=== PATIENT | male | born 1955 | race Caucasian/White ===

== ENCOUNTER → 2024-07-07 14:34 | Outpatient (REF) | payer BC, SELFPAY | LOC: RAD 14:34 | PROVIDERS: ATTENDING PHYSICIAN Internal Medicine | DX: R06.09 Other forms of dyspnea (principal) | CPT/HCPCS: 71046 ==

== ENCOUNTER 2024-07-10 22:33 | Inpatient (IN) | payer BC, MEDICARE, SELFPAY ==
[2024-07-10] VITALS (9 sets, daily range): BP systolic 141–177; BP diastolic 80–88; BMI 33.6; BMI 32.9
[2024-07-10 18:17] LABS: % Basophils 0.6 % (0-2); % Eosinophils 5.9 % (0-6); % Immature Granulocytes 0.3 % (0-0.5); % Monocytes 11.9 % (1.7-9.3); % Neutrophils 52.3 % (42.2-75.2); Absolute Eosinophils 0.4 10^3/uL (0-0.7); Absolute Monocytes 0.8 10^3/uL (0.1-0.6); Absolute Neutrophils 3.6 10^3/uL (1.4-6.5); Hematocrit 21.4 % (39.0-52.0); Hemoglobin 7.2 g/dL (13.0-18.0); Mean Corp Hgb Conc. 33.6 g/dL (33.0-37.0); Mean Corpuscular Volume 77.3 fL (80.0-94.0); Nucleated Red Blood Cells % 0 % (-); Platelet Count 288 10^3/uL (130-400); Red Blood Cell Count 2.77 10^6/uL (4.70-6.10); Red Cell Dist. Width 15.4 % (11.5-14.5)
[2024-07-10 18:43] LABS: ALT (SGPT) 20 U/L (0-50); AST (SGOT) 26 U/L (17-59); Albumin 4.4 g/dl (3.5-5.0); Alkaline Phosphatase 83 U/L (38-126); Blood Urea Nitrogen 18 mg/dl (9-20); Calcium 9.4 mg/dl (8.4-10.2); Carbon Dioxide 23 mmol/L (22-30); Glucose 100 mg/dl (70-99); Total Bilirubin 0.4 mg/dl (0.2-1.3); Total Protein 6.4 g/dl (6.3-8.2); eGFR > 60.00
[2024-07-10 18:51] LABS: Chloride 101 mmol/L (98-107); Sodium 137 mmol/L (135-145)
--- NOTE | 2024-07-10 21:12 | ED.GENMED ---
History of Present Illness
General
Chief Complaint: Abnormal Lab Value
Source: patient
Exam Limitations: none
Time Seen by Provider: 07/10/24 20:45
History of Present Illness
History of Present Illness:
See MDM
Past History
Past History
ED Past Medical History: HTN and Hypercholesterolemia
ED Past Surgical History: None
Social History
Tobacco: Non-smoker
Alcohol: Occasional
Phy Exam
Physical Exam
Physical Exam:
See MDM
Course
Orders/Labs/Results
Orders:
Orders
07/10/24 18:10
Type+Screen Urgent
Complete Blood Count/With Diff Urgent
Comprehensive Metabolic Panel Urgent
Iron Urgent
Comment: ADD ON
Total Iron Binding Urgent
Comment: ADD ON
07/10/24 20:02
ABO2 Urgent
[employer] Wristband Number:
Associate notified that ABO2 has been ordered: [id number]
Date: 07/10/24
Time: 18:16
Environment Coordinator ID: [id number]
07/10/24 20:56
Add On- LAB Urgent
Tests Added?: TIBC, Iron level
07/10/24 21:11
Blood Bank Products [* Blood Bank Products] Urgent
's Orders: Antonio You DO
Blood Bank Products: *Packed RBC Leuko(PRBC's)
Quantity: 2
Transfuse Today: Yes
Reason: Anemia
07/10/24 21:12
Electrocardiogram (*1) Urgent
Reason for Study: Shortness of Breath
EKG- Treatment ONCE
Abnormal Lab Results
07/10/24
18:10
RBC 2.77 L 10^6/uL
(4.70-6.10)
Hgb 7.2 L g/dL
(13.0-18.0)
Hct 21.4 L %
(39.0-52.0)
MCV 77.3 L fL
(80.0-94.0)
MCH 26.0 L pg
(27.0-31.0)
RDW 15.4 H %
(11.5-14.5)
Absolute Monos (auto) 0.8 H 10^3/uL
(0.1-0.6)
Monocytes % 11.9 H %
(1.7-9.3)
Glucose 100 H mg/dl
(70-99)
Iron 29 L ug/dl
(49-181)
Crossmatch IS Only See Detail
07/10/24 18:10
07/10/24 18:10
Vital Signs
Initial and Last Documented VS:
Initial Vital Signs
Temp Pulse Resp BP Pulse Ox
98.3 F 77 18 160/86 96
07/10/24 18:03 07/10/24 18:03 07/10/24 18:03 07/10/24 18:03 07/10/24 18:03
Last Documented Vital Signs
Temp Pulse Resp BP Pulse Ox
98.3 F 67 17 177/88 98
07/10/24 18:03 07/10/24 21:04 07/10/24 21:04 07/10/24 21:00 07/10/24 21:04
MDM/Problems Addressed
Differential Diagnosis Includes:
HPI and MDM Narrative:
69-year-old male presenting with exertional dyspnea over the past several months. Patient initially thought this could be related to a recent trip that he where he was walking more than usual. When he returned, he still noticed that he was short
of breath walking up the steps. He eventually follow-up with his primary care this past week where he had a D-dimer which was normal, chest x-ray was normal and blood work showing anemia. Patient denies history of anemia. He states he has noted
intermittent dark stools in the past but nothing recently. He was sent in for further evaluation
Patient is on a baby aspirin but denies taking blood thinners
Blood work confirms anemia. MCV is 77 but patient states he eats red meat 3 times a week
Physical exam
General: Well appearing and non-toxic
HEENT: protecting airway
Neck: appears supple
CV: No evidence of cyanosis
Resp: No accessory muscle use
Abd: Non-distended
rectal exam: Brown stool guaiac negative
Extremities: No deformities
Neuro: alert
Psych: Normal affect
Skin: Intact
Problems Addressed including Acute and Chronic Conditions affecting care:
1. Symptomatic anemia
Acuity: acute
Prognosis: stable
Details: Possibly in the setting of iron deficiency and possible upper GI bleed. Patient consented for 2 units of packed red blood cells and will admit for further evaluation
Updates
Differential Diagnosis (but not limited to): Symptomatic anemia, upper GI bleeding, iron deficiency
Testing considered: Folic acid and thiamine levels
Drug therapy (if applicable): OTC meds, please see d/c instruction regarding Rx drugs
Amount and/or Complexity of Data Reviewed
Clinical info obtained from: Patient
External data reviewed: N/A
Labs I independently reviewed (but not limited to): Hemoglobin 7.2, MCV 77, white blood cell count and platelets normal
Radiology: N/A
Pulse Ox: not hypoxic
EKG independently reviewed: sinus rhythm, normal axis, no STEMI
Building Maintenance Supervisor: Sinus rhythm
Critical Care: The high probability of a clinically significant, sudden or life threatening deterioration of the cardiovascular system(s) required my full and direct attention, intervention and personal management. The aggregate critical care time
was 33 minutes. This time is in addition to time spent performing reported procedures but includes the following:
[x] Data Review and interpretation
[x] Patient assessment and monitoring of vital signs
[x] Documentation
[x] Medication orders and management
Risk of Complication:
Social Determinants of health: Good social support
Discussed with other providers: hospitalist
Escalation of Care includes Admit/Obs: Given the symptomatic anemia which is new, will admit for further evaluation
Occasional wrong word or 'sound a like' substitutions may have occurred due to the inherent limitations of voice recognition software. Read the chart carefully and recognize, using context, where substitutions have occurred.
*Critical Care Note
Total Time (30-74mins, 75-104mins- exclusive of procedures): 33 min
ED Attending Note
-
Portions of this chart may have been created with voice recognition software.� Occasional wrong word or��sound alike� substitutions may have occurred due to the inherent limitations of voice recognition software.
Discharge Plan
Departure
Patient Disposition: Admit
Date of Disposition: 07/10/24
Time of Disposition: 21:19
Admit to: Med/Surg
Presentation/result/management discussed w/ accepting MD/DO: Hospitalist
Discharge Problem:
Symptomatic anemia
Referrals:
Alfonso Davies MD [Family Provider] -
Interventions
Interventions:
*Risk Screen - Suicide Last Done: 07/10/24 18:03
*General Assessment Last Done: 07/10/24 18:03
*Neglect/Abuse Screening Last Done: 07/10/24 18:03
Discharge Date and Time
Print Language: HUNGARIAN
[2024-07-10 21:28] LABS: Iron 29 ug/dl (49-181)
[2024-07-10 21:38] LABS: Percent Saturation 5 % (20-50); Total Iron Binding Capacity 495 ug/dl (261-462)
--- NOTE | 2024-07-10 21:47 | HPS.HSE ---
Addendum entered and electronically signed by Vania Clark MD 07/10/24 23:39:
Systolic murmur on examination secondary to known aortic stenosis.
Original Note:
Family Physician
-
Family Physician: Alfonso Davies
Chief Complaint
-
anemia
History of Present Illness
69-year-old male past medical history of CAD status post CABG, hypertension, hypercholesteremia presenting with shortness of breath with exertion for months. He has also been having dizziness and occasional palpitations and chest pressure with
exertion. He was also recently having low blood pressure his primary care physician reduced the doses of his blood pressure medications by half. He had outpatient labs which showed low hemoglobin of 7.2. No prior history of anemia. He is
complained of dark stools in the past but no dark stools recently.
He had screening colonoscopy last year which was unremarkable.
He drinks up to a few drinks of alcohol occasionally. He denies smoking.
No family history of colon/GI problems.
Medical History
Past Medical History
Past Medical History: Reports Other (CAD status post CABG, hypertension, hypercholesteremia)
Past Surgical History: Reports None
Social History
Tobacco: Non-smoker
Alcohol: Occasional
Drug: None
Family History
Family History: Not pertinent
Allergies / Home Medications
Allergies reflects when Allergies were last updated in [facility].
Home Medications with original date entered in [facility]
Allergy/Medication List:
Allergies
Allergy/AdvReac Type Severity Reaction Status Date / Time
codeine Allergy Unknown Verified 07/10/24 18:03
Home Medications
amlodipine 5 mg tablet 5 mg PO HS 07/10/24
aspirin 81 mg tablet,delayed release 81 mg PO DAILY 07/10/24
atenolol 50 mg tablet 25 mg PO DAILY 07/10/24
cetirizine 10 mg tablet 10 mg PO DAILY 07/10/24
cholecalciferol (vitamin D3) 50 mcg (2,000 unit) tablet 50 mcg PO DAILY 07/10/24
coenzyme Q10 100 mg capsule (Co Q-10) 100 mg PO DAILY 07/10/24
evolocumab 140 mg/mL subcutaneous pen injector (Repatha SureClick) 140 mg SC Q2W 07/10/24
losartan 100 mg tablet 50 mg PO DAILY 07/10/24
milk thistle 150 mg capsule 375 mg PO DAILY 07/10/24
rosuvastatin 10 mg tablet 10 mg PO DAILY 07/10/24
therapeutic multivitamin 1 tab PO DAILY 07/10/24
turmeric root extract 500 mg capsule 2,250 mg PO DAILY 07/10/24
vitamin A-vitamin C-vit E-min tablet 1 tab PO DAILY 07/10/24
vitamin K2 100 mcg capsule 200 mcg PO DAILY 07/10/24
Review of Systems
-
History Source: Patient
A 12 point ROS was completed and negative except as noted: Yes
Constitutional: Reports No Symptoms
EENT: Reports No Symptoms
Respiratory: Reports No Symptoms
Cardiac: Reports No Symptoms
Abdomen/GI: Reports No Symptoms
: Reports No Symptoms
Musculoskeletal: Reports No Symptoms
Skin: Reports No Symptoms
Neurological: Reports No Symptoms
Endocrine: Reports No Symptoms
Hematologic/Lymphatic: Reports No Symptoms
Psych: Reports No Symptoms
Physical Exam
Vital Signs
Vital Signs
Temp Pulse Resp BP Pulse Ox
98.3 F 67 17 177/88 98
07/10/24 18:03 07/10/24 21:04 07/10/24 21:04 07/10/24 21:00 07/10/24 21:04
Physical Exam
General: Well Developed, Well Nourished and No Apparent Distress
HEENT: NormoCephalic, Moist mucous membranes and Atraumatic
Respiratory: Clear
Cardiac: S1/S2 and Regular Rhythm; No Murmur or Rub
GI: Soft, Non Tender, Non Distended and Normal Bowel Sounds; No Organomegaly
Rectal: Deferred by Provider
Musculoskeletal: No Clubbing, No Cyanosis and No Edema
Skin: No Rash
Neuro: Nonfocal/grossly intact
Laboratory Results
-
07/10/24 18:10
07/10/24 18:10
Laboratory Results
Total Bilirubin 0.4 mg/dl (0.2-1.3) 07/10/24 18:10
AST 26 U/L (17-59) 07/10/24 18:10
ALT 20 U/L (0-50) 07/10/24 18:10
Alkaline Phosphatase 83 U/L (38-126) 07/10/24 18:10
Data Reviewed
-
Lab Data: Labs Reviewed by me
Old Records: Reviewed
Impression/Plan
-
IMPRESSION:
PLAN:
# Acute microcytic anemia suspect chronic GI bleeding
-Hemoglobin 7.2
-Check iron studies, B12 and folate
-2 units of blood
-Protonix 40 IV twice daily
-Hold aspirin
-Clear liquid diet, n.p.o. past midnight
-GI consulted
CAD status post CABG
-Hold aspirin
Essential hypertension
-Blood pressure 170s currently
-Continue amlodipine, atenolol, losartan
Hypercholesterolemia
-continue statin
Full code
DVT prophylaxis�SCDs
N.p.o. pastmidnight
[2024-07-10] MEDS: NSS (PRESERVATIVE FREE) 10 ML IV (23:54)
[2024-07-10] MEDS: PROTONIX IV 40 MG IV (23:54)
[2024-07-10] MEDS: NORVASC 5 MG PO (23:54)
[2024-07-11] VITALS (12 sets, daily range): BP systolic 119–173; BP diastolic 68–95
--- NOTE | 2024-07-11 | PTCARENOTE ---
Received pt from ED, pt ambulated from stretcher to bed. No complaint of pain or dizzy. 2nd unit of blood transfusing. VSS
[2024-07-11 08:24] LABS: % Basophils 0.7 % (0-2); % Eosinophils 7.6 % (0-6); % Immature Granulocytes 0.5 % (0-0.5); % Lymphocytes 22.2 % (20.5-51.1); % Monocytes 13.5 % (1.7-9.3); % Neutrophils 55.5 % (42.2-75.2); Absolute Eosinophils 0.3 10^3/uL (0-0.7); Absolute Monocytes 0.6 10^3/uL (0.1-0.6); Absolute Neutrophils 2.4 10^3/uL (1.4-6.5); Hematocrit 25.4 % (39.0-52.0); Hemoglobin 8.5 g/dL (13.0-18.0); Mean Corp Hgb Conc. 33.5 g/dL (33.0-37.0); Mean Corpuscular Hgb 26.6 pg (27.0-31.0); Mean Corpuscular Volume 79.6 fL (80.0-94.0); Mean Platelet Volume 9.5 fL (7.4-10.4); Nucleated Red Blood Cells % 0 % (-); Platelet Count 235 10^3/uL (130-400); Red Blood Cell Count 3.19 10^6/uL (4.70-6.10); Red Cell Dist. Width 15.2 % (11.5-14.5); White Blood Cell Count 4.4 10^3/uL (4.8-10.8)
[2024-07-11] MEDS: THERAGRAN 1 TABLET PO (08:51)
[2024-07-11] MEDS: CRESTOR 10 MG PO (08:52)
[2024-07-11] MEDS: VITAMIN D3 (cholecalciferol) 50 MCG PO (08:52)
[2024-07-11] MEDS: NSS (PRESERVATIVE FREE) 10 ML IV ×2 (08:52→19:03)
[2024-07-11] MEDS: ZYRTEC 10 MG PO (08:52)
[2024-07-11] MEDS: TENORMIN 25 MG PO (08:52)
[2024-07-11] MEDS: COZAAR 50 MG PO (08:52)
[2024-07-11] MEDS: PROTONIX IV 40 MG IV ×2 (08:53→19:01)
[2024-07-11] MEDS: FLUSH (NSS) 1 FLUSH IV ×2 (08:53→19:03)
[2024-07-11 09:09] LABS: ALT (SGPT) 17 U/L (0-50); AST (SGOT) 23 U/L (17-59); Albumin 3.9 g/dl (3.5-5.0); Alkaline Phosphatase 71 U/L (38-126); Blood Urea Nitrogen 12 mg/dl (9-20); Calcium 8.9 mg/dl (8.4-10.2); Carbon Dioxide 27 mmol/L (22-30); Chloride 102 mmol/L (98-107); Estimated Creatinine Clearance 95 ml/min; Glucose 91 mg/dl (70-99); Sodium 138 mmol/L (135-145); Total Bilirubin 1.2 mg/dl (0.2-1.3); Total Protein 5.9 g/dl (6.3-8.2); eGFR > 60.00
[2024-07-11 09:53] LABS: Folate > 20.0 ng/ml (2.76-20); Vitamin B12 340 pg/ml (239-931)
--- NOTE | 2024-07-11 13:14 | CON.GI ---
Consultation
-
Date/Time Consultation Requested: 07/11/2024
Date/Time Consultation Performed: 07/11/2024
Performing Provider: Rafiq Ochoa
Reason for Consultation: anemia, reported melena
Medical History
Chief Complaint / HPI
Chief Complaint: anemia, reported melena
History of Present Illness:
Patient is a 6-year-old male with history of CAD s/p CABG, HTN, hypercholesterolemia who presents with dyspnea on exertion. He had outpatient lab which showed Hgb of 7.2. He reports she had melenic stool after he returned from his trip to [facility]
about 2 months ago. He had black stools for few days to up to about a week which stopped spontaneously. He has been having normal brown BM for past 2 months or so. He had colonoscopy in 2022 which was unremarkable.
Past Medical History
Past Medical History: CAD, HTN, Hypercholesterolemia and Other
Past Surgical History: Other
Social History
Tobacco: Non-Smoker
Alcohol: Occasional
Family History
Family History: Reviewed & Not Pertinent
Allergies / Home Medications
Allergy/AdvReac Type Severity Reaction Status Date / Time
codeine Allergy Unknown Verified 07/10/24 18:03
�Medication �Instructions �Recorded
amlodipine 5 mg tablet 5 mg PO HS 07/10/24
aspirin 81 mg tablet,delayed 81 mg PO DAILY 07/10/24
release
atenolol 50 mg tablet 25 mg PO DAILY 07/10/24
cetirizine 10 mg tablet 10 mg PO DAILY 07/10/24
cholecalciferol (vitamin D3) 50 50 mcg PO DAILY 07/10/24
mcg (2,000 unit) tablet
coenzyme Q10 100 mg capsule (Co 100 mg PO DAILY 07/10/24
Q-10)
evolocumab 140 mg/mL subcutaneous 140 mg SC Q2W 07/10/24
pen injector (Repatha SureClick)
losartan 100 mg tablet 50 mg PO DAILY 07/10/24
milk thistle 150 mg capsule 375 mg PO DAILY 07/10/24
rosuvastatin 10 mg tablet 10 mg PO DAILY 07/10/24
therapeutic multivitamin 1 tab PO DAILY 07/10/24
turmeric root extract 500 mg 2,250 mg PO DAILY 07/10/24
capsule
vitamin A-vitamin C-vit E-min 1 tab PO DAILY 07/10/24
tablet
vitamin K2 100 mcg capsule 200 mcg PO DAILY 07/10/24
Review of Systems
Vital Signs
Temp Pulse Resp BP Pulse Ox
97.6 F 57 20 137/80 98
07/11/24 11:00 07/11/24 11:00 07/11/24 11:00 07/11/24 11:00 07/11/24 11:00
Physical Exam
Exam
General: Well Developed and Well Nourished
HEENT: Normocephalic
Respiratory: Clear
Cardiac: S1/S2
GI: Soft, Non Tender and Non Distended
Results
WBC 4.4 10^3/uL (4.8-10.8) L 07/11/24 07:18
Hgb 8.5 g/dL (13.0-18.0) L 07/11/24 07:18
Hct 25.4 % (39.0-52.0) L 07/11/24 07:18
MCV 79.6 fL (80.0-94.0) L 07/11/24 07:18
Plt Count 235 10^3/uL (130-400) 07/11/24 07:18
Absolute Neuts (auto) 2.4 10^3/uL (1.4-6.5) 07/11/24 07:18
Sodium 138 mmol/L (135-145) 07/11/24 07:18
Potassium 4.0 mmol/L (3.5-5.1) 07/11/24 07:18
Chloride 102 mmol/L (98-107) 07/11/24 07:18
Carbon Dioxide 27 mmol/L (22-30) 07/11/24 07:18
BUN 12 mg/dl (9-20) 07/11/24 07:18
Creatinine 0.8 mg/dL (0.7-1.3) 07/11/24 07:18
Calcium 8.9 mg/dl (8.4-10.2) 07/11/24 07:18
Total Bilirubin 1.2 mg/dl (0.2-1.3) 07/11/24 07:18
AST 23 U/L (17-59) 07/11/24 07:18
ALT 17 U/L (0-50) 07/11/24 07:18
Alkaline Phosphatase 71 U/L (38-126) 07/11/24 07:18
Diagnostic Image Results:
Prior GI Procedures:
EGD:
Colonoscopy:
Assessment / Plan
-
6-year-old male with history of CAD s/p CABG, HTN, hypercholesterolemia who presents with symptomatic anemia. He reported remote history of melena.
Impression / Rec:
1. Symptomatic anemia, reported melena - Review of his outpatient records show he had normal Hgb on 12/2022. He also had diverticulosis but otherwise normal colonoscopy on 04/2023. He reported few days of melena after return from his trip to
[facility] about 2 months ago. He denies abdominal pain or NSAID use during the episode. He has been having regular brown BMs since for past 2 months. BRITTANY in ER showed brown stool and was Hemoccult negative. Abdo exam is normal. Never had EGD.
The etiology of his anemia is unclear at this point, certainly not from active hemorrhage. Will need Endo evaluation with EGD and possible capsule endoscopy, but I feel this can be arranged as OP. Can plan for inpatient endoscopy if his Hgb
decreases or has signs of active GI bleeding, otherwise plan for OP evaluation. Will schedule OP F/U. GI will sign off.
Total Time Spent with Patient (in minutes): 55
-
-
Thank you for consultation and allowing me to participate in the patient's care. Please call the resident surgeon GI physician during the after hours with any questions or concerns.
--- NOTE | 2024-07-11 13:17 | W.PN.HOSP.TC ---
Today's Communication/Plan
-
await GI input--started clears
follow HGB
Assessment / Plan
Assessment / Plan
pt is a 69 year old male
Acute microcytic anemia suspect chronic GI bleeding --Hemoglobin 7.2--appears iron deficient, although no ferritin checked--iron 29, TIBC 495, %sat 5--cont IV iron--s/p pRBC 2 units--PPI-apprec GI--clears--vit B12 low normal, may benefit from
supplements
CAD status post CABG--Hold aspirin
Essential hypertension--Blood pressure 170s currently--Continue amlodipine, atenolol, losartan
Hypercholesterolemia--continue statin
Full code
DVT prophylaxis�SCDs
Anticipated Discharge: 24 - 48 hours
Subjective/Interval History
-
Date of Service: July 11, 2024
pt without c/o--hoping to have solid food for dinner
Objective Data
-
Labs:
Laboratory Results
07/11/24
07:18
WBC 4.4 L
Hgb 8.5 L
Hct 25.4 L
Plt Count 235
Sodium 138
Potassium 4.0
Chloride 102
Carbon Dioxide 27
BUN 12
Creatinine 0.8
Glucose 91
Calcium 8.9
Total Bilirubin 1.2
AST 23
ALT 17
Alkaline Phosphatase 71
Vital Signs:
max temp for 24 hours
07/11/24
03:56
Temp 98 F
Vital Signs
Temp Pulse Resp BP Pulse Ox
97.6 F 57 20 137/80 98
07/11/24 11:00 07/11/24 11:00 07/11/24 11:00 07/11/24 11:00 07/11/24 11:00
I&O
07/10/24 07/11/24 07/12/24
06:59 06:59 06:59
Intake Total 500 / 500
Balance 500 / 500
Review of Systems
-
All other systems: Reviewed and negative
Physical Exam
-
General: Well Developed, Well Nourished and No Apparent Distress
HEENT: Normocephalic and Atraumatic
Respiratory: Clear to Auscultation; Negative Wheezes or Rhonchi
Cardiac: Regular Rhythm, S1/S2 and Murmur
GI: Soft, Nontender, Nondistended and Normal Bowel Sounds
Musculoskeletal: No Clubbing, No Cyanosis and No Edema
Neuro: Awake and Alert
[2024-07-11] MEDS: NORVASC 5 MG PO (21:52)
[2024-07-11] MEDS: MELATONIN 5 MG PO (22:59)
[2024-07-12 03:26] VITALS: BP 117/66
[2024-07-12 07:56] LABS: Hematocrit 27.2 % (39.0-52.0); Mean Corp Hgb Conc. 33.1 g/dL (33.0-37.0); Mean Corpuscular Hgb 25.9 pg (27.0-31.0); Mean Corpuscular Volume 78.4 fL (80.0-94.0); Mean Platelet Volume 9.5 fL (7.4-10.4); Platelet Count 257 10^3/uL (130-400); Red Blood Cell Count 3.47 10^6/uL (4.70-6.10); Red Cell Dist. Width 15.6 % (11.5-14.5); White Blood Cell Count 4.5 10^3/uL (4.8-10.8)
[2024-07-12 08:21] VITALS: BP 141/72
[2024-07-12] MEDS: ZYRTEC 10 MG PO (08:35)
[2024-07-12] MEDS: TENORMIN 25 MG PO (08:35)
[2024-07-12] MEDS: CRESTOR 10 MG PO (08:35)
[2024-07-12] MEDS: PROTONIX IV 40 MG IV (08:36)
[2024-07-12] MEDS: COZAAR 50 MG PO (08:36)
[2024-07-12] MEDS: NSS (PRESERVATIVE FREE) 10 ML IV (08:36)
[2024-07-12] MEDS: THERAGRAN 1 TABLET PO (08:36)
[2024-07-12] MEDS: VITAMIN D3 (cholecalciferol) 50 MCG PO (08:36)
[2024-07-12 08:39] LABS: Blood Urea Nitrogen 9 mg/dl (9-20); Calcium 9.2 mg/dl (8.4-10.2); Carbon Dioxide 27 mmol/L (22-30); Chloride 102 mmol/L (98-107); Estimated Creatinine Clearance 95 ml/min; Glucose 93 mg/dl (70-99); Magnesium 2.2 mg/dl (1.6-2.3); Potassium 4.5 mmol/L (3.5-5.1); Sodium 140 mmol/L (135-145); eGFR > 60.00
--- NOTE | 2024-07-12 09:17 | W.PN.HOSP.TC ---
Today's Communication/Plan
-
d/c
Assessment / Plan
Assessment / Plan
pt is a 69 year old male
Acute microcytic anemia suspect chronic GI bleeding --Hemoglobin 9.0 after 2 units pRBC --appears iron deficient, although no ferritin checked--iron 29, TIBC 495, %sat 5--cont iron--PPI-apprec GI---vit B12 low normal, may benefit from supplements
CAD status post CABG--Hold aspirin
Essential hypertension--Blood pressure 170s currently--Continue amlodipine, atenolol, losartan
Hypercholesterolemia--continue statin
Full code
DVT prophylaxis�SCDs
OK for d/c
Anticipated Discharge: Today
Subjective/Interval History
-
Date of Service: July 12, 2024
pt without c/o
Objective Data
-
Labs:
Laboratory Results
07/12/24
07:11
WBC 4.5 L
Hgb 9.0 L
Hct 27.2 L
Plt Count 257
Sodium 140
Potassium 4.5
Chloride 102
Carbon Dioxide 27
BUN 9
Creatinine 0.8
Glucose 93
Calcium 9.2
Vital Signs:
max temp for 24 hours
07/11/24
15:27
Temp 98.5 F
Vital Signs
Temp Pulse Resp BP Pulse Ox
97.7 F 58 18 141/72 95
07/12/24 08:21 07/12/24 08:35 07/12/24 08:21 07/12/24 08:35 07/12/24 08:21
I&O
07/11/24 07/12/24 07/13/24
06:59 06:59 06:59
Intake Total 500 / 500 720 / 720
Balance 500 / 500 720 / 720
Review of Systems
-
All other systems: Reviewed and negative
Physical Exam
-
General: Well Developed, Well Nourished and No Apparent Distress
HEENT: Normocephalic
Respiratory: Clear to Auscultation; Negative Wheezes or Rhonchi
Cardiac: Regular Rhythm, S1/S2 and Murmur
GI: Soft, Nontender, Nondistended and Normal Bowel Sounds
Musculoskeletal: No Clubbing, No Cyanosis and No Edema
Neuro: Awake and Alert
Psych: Calm
--- NOTE | 2024-07-12 11:15 | W.DCSUMMARY ---
Discharge Summary
Discharge Data
Date of Admission: 07/10/24
Date of Discharge: 07/12/24
-
Pending Results: No
Hospital Course
Primary care physician : Alfonso Davies
Principal Discharge diagnosis : Acute blood loss anemia due to chronic GI bleeding
Chronic Discharge diagnosis : Coronary artery disease status post bypass surgery, essential hypertension, hyperlipidemia
Hospital Course : Patient is a 69-year-old male who was having dizziness with occasional palpitations and chest pressure with exertion. He was seen with his primary care physician because of low blood pressures and his blood pressure medication
dosing was reduced by half. He had outpatient labs which showed a hemoglobin of 7.2. He has no prior history of anemia. He did complain of dark stools but none recently. Patient was admitted.
Problem #1: Acute blood loss anemia due to chronic GI bleeding. Patient was admitted and seen in consultation by GI. He did receive 2 units of packed red blood cells with a subsequent hemoglobin up to 9 at the day of discharge. He did appear iron
deficient with an iron level of 29, total iron binding capacity of 495, and percent saturation of 5. However, ferritin was not checked. He was started on iron. B12 was low normal and he was also started on supplements at discharge. He is
tolerating his diet. GI is recommending outpatient EGD and colonoscopy. He patient understands he is to follow-up with them.
Problem #2: All other medical issues. These include Coronary artery disease status post bypass surgery, essential hypertension, hyperlipidemia. These medical issues were stable during his hospitalization. Medications were continued as able.
Patient is stable for discharge home at this time. If there are any questions regarding this dictation or his hospital stay, please do not hesitate to call. Our office number is [phone].
Discharge Plan
-
Patient Disposition: Home (Routine Discharge)
Discharge Diagnosis/Procedures: Acute blood loss anemia due to chronic GI bleeding, coronary artery disease status post bypass surgery, essential hypertension, hyperlipidemia
Condition: Good
Diet: As tolerated and Regular
Activity: As tolerated
Driving Restrictions: As prior to admission
Bathing Restrictions: None
Referrals:
Rafiq Ochoa MD [Active] - (Call for appointment)
Alfonso Davies MD [Family Provider] - in less than 1 week
Prescriptions:
New
ferrous sulfate [FeroSul] 325 mg (65 mg iron) tablet
325 mg PO BID Qty: 30 0RF
cyanocobalamin (vitamin B-12) 1,000 mcg tablet
1,000 mcg PO DAILY Qty: 30 0RF
Continued
cetirizine 10 mg Tablet
10 mg PO DAILY
therapeutic multivitamin Tablet
1 tab PO DAILY
amlodipine 5 mg tablet
5 mg PO HS
aspirin 81 mg Tablet,Delayed Release (Dr/Ec)
81 mg PO DAILY
milk thistle 150 mg Capsule
375 mg PO DAILY
losartan 100 mg tablet
50 mg PO DAILY
atenolol 50 mg tablet
25 mg PO DAILY
vitamin A-vitamin C-vit E-min Tablet
1 tab PO DAILY
coenzyme Q10 [Co Q-10] 100 mg Capsule
100 mg PO DAILY
rosuvastatin 10 mg tablet
10 mg PO DAILY
cholecalciferol (vitamin D3) 50 mcg (2,000 unit) Tablet
50 mcg PO DAILY
turmeric root extract 500 mg Capsule
2,250 mg PO DAILY
vitamin K2 100 mcg Capsule
200 mcg PO DAILY
Repatha SureClick 140 mg/mL pen injector
140 mg SC Q2W
Discharge Orders:
Discharge Patient (As Directed); Ordered 07/12/24
Ordered By: Carmen Velasco
Discharge Date and Time
Print Language: DANISH
[2024-07-12 12:08] VITALS: BP 123/74
--- NOTE | 2024-07-12 12:12 | CM ---
CM attempted to see Mr. Soriano, however he was admitted just prior to midnight and discharged before noon today. Pt was not given an IMM in the ED, and unable to provide it today since he had already left the hospital.
Plan: Discharge to home with no needs.
== END 2024-07-12 12:07 | disposition home or self-care (01) | DRG 812 ==
LOC: 4 EAST ACU 22:33
PROVIDERS: Emergency Medicine; ADMITTING PHYSICIAN Hospitalist; ATTENDING PHYSICIAN Internal Medicine; CONSULT PHYSICIAN Internal Medicine Gastroenterology; EMERGENCY PHYSICIAN Student in an Organized Health Care Education/Training Program; FAMILY PHYSICIAN Internal Medicine
PROC: 30233N1 Transfusion of Nonautologous Red Blood Cells into Peripheral Vein, Percutaneous Approach (ICD-10-PCS; 2024-07-10)
DX: D50.0 Iron deficiency anemia secondary to blood loss (chronic) (principal); E78.00 Pure hypercholesterolemia, unspecified; I10 Essential (primary) hypertension; I25.10 Atherosclerotic heart disease of native coronary artery without angina pectoris; I35.0 Nonrheumatic aortic (valve) stenosis; Z95.1 Presence of aortocoronary bypass graft; Z88.5 Allergy status to narcotic agent; Z79.82 Long term (current) use of aspirin; Z87.19 Personal history of other diseases of the digestive system
CPT/HCPCS: 80048; 80053; 82607; 82746; 83540; 83550; 83735; 85025; 85027; 86850; 86900; 86901; 86920; 93005; 99291; P9016

== ENCOUNTER → 2024-07-22 06:43 | Day surgery (SDC) | payer BC, SELFPAY | LOC: GI 06:43 | PROVIDERS: ATTENDING PHYSICIAN Internal Medicine Gastroenterology | DX: D62 Acute posthemorrhagic anemia (principal); K44.9 Diaphragmatic hernia without obstruction or gangrene; K26.4 Chronic or unspecified duodenal ulcer with hemorrhage; K20.90 Esophagitis, unspecified without bleeding; K92.1 Melena; K29.50 Unspecified chronic gastritis without bleeding | CPT/HCPCS: 43239; 88305; 88312; 88342 ==

== ENCOUNTER → 2024-07-22 12:04 | Outpatient (REF) | payer BC, SELFPAY ==
[2024-07-22 12:46] LABS: Hematocrit 33.3 % (39.0-52.0); Hemoglobin 10.7 g/dL (13.0-18.0); Mean Corp Hgb Conc. 32.1 g/dL (33.0-37.0); Mean Corpuscular Hgb 25.6 pg (27.0-31.0); Mean Corpuscular Volume 79.7 fL (80.0-94.0); Mean Platelet Volume 9.5 fL (7.4-10.4); Platelet Count 280 10^3/uL (130-400); Red Blood Cell Count 4.18 10^6/uL (4.70-6.10); Red Cell Dist. Width 16.9 % (11.5-14.5); White Blood Cell Count 4.3 10^3/uL (4.8-10.8)
[2024-07-22 14:12] LABS: Ferritin 8.7 ng/ml (17.9-464.0)
== END ==
LOC: REG 12:04
PROVIDERS: ATTENDING PHYSICIAN Internal Medicine
DX: D50.0 Iron deficiency anemia secondary to blood loss (chronic) (principal)
CPT/HCPCS: 36415; 82728; 85027

== ENCOUNTER → 2024-07-29 08:02 | Outpatient (REF) | payer BC, SELFPAY | LOC: DHCBC/DCA 08:02 | PROVIDERS: ATTENDING PHYSICIAN Internal Medicine Cardiovascular Disease; FAMILY PHYSICIAN Internal Medicine | DX: E78.5 Hyperlipidemia, unspecified (principal); Z95.1 Presence of aortocoronary bypass graft; R42 Dizziness and giddiness | CPT/HCPCS: 78452; 93017; A9500 ==

== ENCOUNTER → 2024-10-19 06:20 | Day surgery (SDC) | payer BC, SELFPAY | LOC: GI 06:20 | PROVIDERS: ATTENDING PHYSICIAN Internal Medicine Gastroenterology | DX: K20.90 Esophagitis, unspecified without bleeding (principal); K22.89 Other specified disease of esophagus; K44.9 Diaphragmatic hernia without obstruction or gangrene; Z87.11 Personal history of peptic ulcer disease | CPT/HCPCS: 43239; 88305 ==

== ENCOUNTER → 2024-11-19 13:09 | Outpatient (REF) | payer MEDICARE, BC, SELFPAY | LOC: RCS 13:09 | PROVIDERS: ATTENDING PHYSICIAN Internal Medicine Cardiovascular Disease; FAMILY PHYSICIAN Internal Medicine | DX: Z95.1 Presence of aortocoronary bypass graft (principal) | CPT/HCPCS: 93306 ==